=== PATIENT | male | born 1990 | race African-American/Black ===

== ENCOUNTER 2017-09-05 13:23 | Emergency (ER) | payer OTHER ==
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
[2017-09-05 14:00] VITALS: RESP 18
[2017-09-05] MEDS ORDERED: IOPAMIDOL (ISOVUE-300) 100 ML BTL ONE (14:02)
[2017-09-05 14:05] LABS: PLATELET COUNT 210 10^3/uL (150-400)
[2017-09-05] MEDS ORDERED: LORazepam 2 MG/ML INJ IVP ONE ×2 (15:00→16:13)
[2017-09-05] MEDS ORDERED: LORazepam 2 MG/ML INJ ONE (15:01)
[2017-09-05] MEDS ORDERED: LIDOCAINE 2% JELLY 20 ML (UROJECT) ONE (15:35)
[2017-09-05] MEDS ORDERED: SILVER SULFADIAZINE 50 GM JAR TP ONE (17:11)
[2017-09-05 18:02] VITALS: BP 112/86; PULSE 92; TEMP 99; O2SAT 97
== END 2017-09-05 18:02 | disposition home or self-care (01) ==
LOC: EDAGE
PROC: 0HQ1XZZ Repair Face Skin, External Approach (ICD-10-PCS; principal; 2017-09-05)
DX: S22.31XA Fracture of one rib, right side, initial encounter for closed fracture (principal); S20.20XA Contusion of thorax, unspecified, initial encounter; S20.91XA Abrasion of unspecified parts of thorax, initial encounter; S09.91XA Unspecified injury of ear, initial encounter; S01.81XA Laceration without foreign body of other part of head, initial encounter; V69.40XA Driver of heavy transport vehicle injured in collision with unspecified motor vehicles in traffic accident, initial encounter; Y92.410 Unspecified street and highway as the place of occurrence of the external cause; Y99.8 Other external cause status; Y93.89 Activity, other specified
CPT/HCPCS: 82947-QW; 96374; J2060; Q9967